=== PATIENT | female | born 1995 | race Two or more races ===

== ENCOUNTER 2024-08-28 07:23 | Emergency (ER) | payer OTHER ==
[~2024-08-28] VITALS: Ht 160 cm; Wt 68.0 kg
[2024-08-28 09:02] LABS: HEMATOCRIT 38.9 % (36.0-45.00); MEAN CELL VOLUME 89.1 fL (80.00-100.00); MEAN CORPUSCULAR HEMOGLOBIN 29.7 pg (27.00-32.0); MEAN CORPUSCULAR HGB CONC 33.3 g/dl (32.0-36.0); PLATELET COUNT 247 K/uL (150-450); RED BLOOD COUNT 4.37 M/uL (4.00-6.00); RED CELL DISTRIBUTION WIDTH 12.8 % (11.5-14.5)
[2024-08-28] MEDS ORDERED: KETOROLAC TROMETHAMINE 60 MG VIAL IM STA (10:03)
== END 2024-08-28 10:10 | disposition home or self-care (01) ==
LOC: ER 07:25
PROVIDERS: General Practice
DX: B34.9 Viral infection, unspecified (principal); Z20.822 Contact with and (suspected) exposure to COVID-19

== ENCOUNTER → 2025-07-24 | Emergency (ER) | payer OTHER ==
[~2025-07-24] VITALS: Ht 160 cm; Wt 66.7 kg
== END | disposition left against medical advice (07) ==
LOC: ER 20:56
DX: Z53.21 Procedure and treatment not carried out due to patient leaving prior to being seen by health care provider (principal)